=== PATIENT | female | born 1950 | race Caucasian/White ===

== ENCOUNTER 2018-01-19 20:48 | Emergency (ER) | payer MEDICARE ==
[~2018-01-19] VITALS: Ht 162.6 cm; Wt 74.8 kg
[2018-01-19] MEDS ORDERED: TDAP DIPH,PERTUSS,TET VAC/PF 0.5 ML DISP.SYRIN IM ONE ×2 (21:42→22:00)
[2018-01-19] MEDS ORDERED: CLINDAMYCIN HCL 150 MG CAPSULE PO ONE (21:45)
[2018-01-19] MEDS ORDERED: CIPROFLOXACIN HCL 250 MG TABLET PO ONE (21:45)
[2018-01-19] MEDS ORDERED: CLINDAMYCIN HCL 150 MG CAPSULE ONE (21:56)
[2018-01-19] MEDS ORDERED: CIPROFLOXACIN HCL 250 MG TABLET ONE (21:57)
--- NOTE | 2018-01-19 22:03 | NUR ---
Patient discharged to home in stable conditon. Bite wound was cleaned NS solution and betadine. Wound was dressed with bandage. Written and verbal after care instructions given. Patient verbalizes understanding of instructions. Patient able to ambulate unassisted with a steady gait. Patient left with all personal belongings.
[2018-01-19 22:32] VITALS: BP 142/84
== END 2018-01-19 22:03 | disposition home or self-care (01) ==
LOC: ER 20:50
DX: S60.571A Other superficial bite of hand of right hand, initial encounter (principal); W54.0XXA Bitten by dog, initial encounter; Y92.89 Other specified places as the place of occurrence of the external cause; Z88.0 Allergy status to penicillin; Z91.040 Latex allergy status
CPT/HCPCS: 90715; A4663